=== PATIENT | male | born 1970 | race Caucasian/White ===

== ENCOUNTER → 2018-10-20 | Outpatient (CLI) | payer OTHER ==
--- NOTE | 2018-10-21 03:17 | REP ---
Clinical: Right knee pain. Technique: AP, lateral, bilateral oblique and sunrise views of the right knee. Findings: Small amount of chondrocalcinosis appreciated along with very subtle cortical irregularity involving the femoral condyles suggests mild degenerative change. Lateral and sunrise views demonstrate small spurring along the superior and lateral margins of the patella. Associated prepatellar soft tissue swelling and moderate suprapatellar effusion are also identified. No acute fracture or dislocation. Impression: Mild/moderate degenerative changes along with prepatellar swelling and suprapatellar effusion. Electronically Signed by Austen Mtz MD 10/21/2018 03:09 A
== END ==
LOC: M RAD 09:24
PROVIDERS: ATTEND Surgery
DX: M25.561 Pain in right knee (principal)